=== PATIENT | female | born 1925 | race Caucasian/White ===

== ENCOUNTER 2016-07-05 12:28 | Inpatient (IN) | payer OTHER ==
[~2016-07-05] VITALS: Ht 154.9 cm; Wt 42.2 kg
[~2016-07-05 12:28] MED LIST: BACITRACIN 50,000 UNITS INJ IRRIG ONE
[2016-07-05] MEDS ORDERED: FENTANYL 100 MCG/2 ML AMP IV ONE (13:34)
[2016-07-05] MEDS ORDERED: KETAMINE INJ 50 MG/ML VIAL IV ONE (13:34)
[2016-07-05] MEDS ORDERED: MIDAZOLAM 2 MG/2 ML INJ IV ONE (13:34)
[2016-07-05 15:15] VITALS: BP_SYST 156; BP_SYST 160; RESP 18; TEMP 98.7
[2016-07-05 16:41] VITALS: Ht 154.9 cm; Wt 42.2 kg
[2016-07-05] MEDS ORDERED: SALINE FLUSH 10 ML FLUSH PRN (17:20)
[2016-07-05] MEDS ORDERED: BISACODYL 10 MG SUPP RECTAL PRN (17:20)
[2016-07-05] MEDS ORDERED: ALU/MAG/SIM 30 ML UDC PO PRN (17:20)
[2016-07-05] MEDS ORDERED: MAG HYDROX 30 ML UDC PO PRN (17:20)
[2016-07-05] MEDS ORDERED: BISACODYL EC 5 MG TAB PO PRN (17:20)
[2016-07-05] MEDS ORDERED: ONDANSETRON 4 MG VIAL IV PRN (17:20)
[2016-07-05 19:06] VITALS: BP_SYST 147; RESP 16; TEMP 98.7
[2016-07-05] MEDS: KCL CR 10 MEQ TAB PO SCH (19:41)
[2016-07-05] MEDS: CHOLECALCIFEROL 1,000 UNITS TAB PO SCH (19:42)
[2016-07-05] MEDS: PAROXETINE HCL 20 MG TAB PO SCH (19:42)
[2016-07-05] MEDS: MONTELUKAST 10 MG TAB PO SCH (19:42)
[2016-07-05] MEDS: TOLTERODINE LA 2 MG CAP PO SCH (19:43)
[2016-07-05] MEDS: SALINE FLUSH 10 ML FLUSH SCH (19:55)
[2016-07-05 19:58] VITALS: RESP 20
[2016-07-05] MEDS: CARBIDOPA PO SCH (21:57)
[2016-07-05] MEDS: LEVODOPA PO SCH (21:57)
[2016-07-05] MEDS: DOCUSATE SOD 100 MG CAP PO SCH (21:57)
[2016-07-05] MEDS: DILAUDID 1 MG/ML AMP IV PRN (22:15)
[2016-07-05 22:33] VITALS: BP_SYST 151; RESP 16; TEMP 99.5
[2016-07-06] VITALS (15 sets, daily range): BP systolic 92–147; RESP 15–28; TEMP 97.5–101
[2016-07-06] MEDS: SODIUM CHLORIDE 0.9% FLUSH BAG 500 ML IV SCH (05:57)
[2016-07-06] MEDS: DILAUDID 1 MG/ML AMP IV PRN (06:54)
[2016-07-06] MEDS ORDERED: CEFAZOLIN 2,000 MG in SODIUM CHLORIDE 0.9% 100 ML IV ONE (07:05)
[2016-07-06] MEDS ORDERED: NEB-XOPENEX 0.63 MG/3 ML INH ONE (07:45)
[2016-07-06] MEDS ORDERED: LACT RINGERS 1,000 ML IV SCH (07:45)
[2016-07-06] MEDS ORDERED: GLYCOPYRROLATE 0.2 MG/ML VIAL IV ONE (07:45)
[2016-07-06] MEDS ORDERED: LIDOCAINE 1% BUFFERED 1 ML SYR INTRADERM PRN (07:45)
[2016-07-06] MEDS ORDERED: MIDAZOLAM 2 MG/2 ML INJ IV ONE (07:45)
[2016-07-06] MEDS: DUONEB INH SCH ×3 (08:10→18:57)
[2016-07-06] MEDS: SALINE FLUSH 10 ML FLUSH SCH ×3 (08:47→21:00)
[2016-07-06] MEDS ORDERED: ENOXAPARIN 30 MG/0.3 ML SYR SUBQ SCH (09:00)
[2016-07-06] MEDS: LEVODOPA PO SCH ×3 (09:00→21:00)
[2016-07-06] MEDS: CARBIDOPA PO SCH ×3 (09:00→21:00)
[2016-07-06] MEDS ORDERED: MORPHINE 2 MG/ML SYR IV PRN (12:15)
[2016-07-06] MEDS ORDERED: DILAUDID 1 MG/ML AMP IV PRN (12:15)
[2016-07-06] MEDS ORDERED: ONDANSETRON 4 MG VIAL IV PRN ×2 (12:15→13:20)
[2016-07-06] MEDS ORDERED: MORPHINE 4 MG/ML SYR IV PRN ×2 (12:15→13:20)
[2016-07-06] MEDS ORDERED: OXYCODONE 5 MG TAB PO PRN (12:15)
[2016-07-06] MEDS ORDERED: D5-1/2-NS W/KCL 20MEQ/L 1,000 ML IV SCH (13:20)
[2016-07-06] MEDS ORDERED: MAG HYDROX 30 ML UDC PO PRN (13:20)
[2016-07-06] MEDS ORDERED: SALINE FLUSH 10 ML FLUSH PRN (13:20)
[2016-07-06] MEDS ORDERED: ONDANSETRON 4 MG TAB PO PRN (13:20)
[2016-07-06] MEDS: TOLTERODINE LA 2 MG CAP PO SCH (15:06)
[2016-07-06] MEDS: KCL CR 10 MEQ TAB PO SCH (15:06)
[2016-07-06] MEDS: PAROXETINE HCL 20 MG TAB PO SCH (15:06)
[2016-07-06] MEDS: MONTELUKAST 10 MG TAB PO SCH (15:07)
[2016-07-06] MEDS: CHOLECALCIFEROL 1,000 UNITS TAB PO SCH (15:07)
[2016-07-06] MEDS: CEFAZOLIN 2,000 MG in SODIUM CHLORIDE 0.9% 100 ML IV SCH ×2 (18:18→23:00)
[2016-07-06] MEDS: DOCUSATE SOD 100 MG CAP PO SCH ×2 (21:00)
[2016-07-06] MEDS: SENNA 8.6 MG TAB PO SCH (21:00)
[2016-07-06] MEDS: MORPHINE 2 MG/ML SYR IV PRN (22:49)
[2016-07-07 04:27] VITALS: BP_SYST 130; RESP 18; TEMP 99.2
[2016-07-07] MEDS: DUONEB INH SCH ×3 (05:04→17:09)
[2016-07-07] MEDS: SODIUM CHLORIDE 0.9% FLUSH BAG 500 ML IV SCH ×2 (05:09→05:10)
[2016-07-07] MEDS: CEFAZOLIN 2,000 MG in SODIUM CHLORIDE 0.9% 100 ML IV SCH ×2 (05:12→11:49)
[2016-07-07] MEDS: ENOXAPARIN 30 MG/0.3 ML SYR SUBQ SCH (05:13)
[2016-07-07 07:12] VITALS: BP_SYST 115; RESP 18; TEMP 98
[2016-07-07] MEDS: SALINE FLUSH 10 ML FLUSH SCH ×4 (08:00→20:02)
[2016-07-07] MEDS: POLYETHYLENE GLYCOL 17 GM PACKET PO SCH (08:29)
[2016-07-07] MEDS: CARBIDOPA PO SCH ×3 (08:30→20:03)
[2016-07-07] MEDS: SENNA 8.6 MG TAB PO SCH ×2 (08:30→20:03)
[2016-07-07] MEDS: PAROXETINE HCL 20 MG TAB PO SCH (08:30)
[2016-07-07] MEDS: TOLTERODINE LA 2 MG CAP PO SCH (08:30)
[2016-07-07] MEDS: MONTELUKAST 10 MG TAB PO SCH (08:30)
[2016-07-07] MEDS: LEVODOPA PO SCH ×3 (08:30→20:03)
[2016-07-07] MEDS: CHOLECALCIFEROL 1,000 UNITS TAB PO SCH (08:30)
[2016-07-07] MEDS: MAG HYDROX 30 ML UDC PO SCH (08:31)
[2016-07-07] MEDS: DOCUSATE SOD 100 MG CAP PO SCH ×3 (08:31→20:55)
[2016-07-07] MEDS ORDERED: MISSING DOSE XX ONE (09:15)
[2016-07-07] MEDS: KCL CR 10 MEQ TAB PO SCH (10:10)
[2016-07-07] MEDS: MORPHINE 2 MG/ML SYR IV PRN ×2 (11:02→16:51)
[2016-07-07 11:21] VITALS: BP_SYST 106; RESP 16; TEMP 98.6
[2016-07-07 15:33] VITALS: BP_SYST 113; RESP 18; TEMP 98.1
[2016-07-07] MEDS ORDERED: FLEET ENEMA 132 ML BTL RECTAL PRN (15:50)
[2016-07-07 18:49] VITALS: BP_SYST 100; RESP 16; TEMP 98.6
[2016-07-07 23:48] VITALS: BP_SYST 100; RESP 12; TEMP 97.6
[2016-07-08 04:35] VITALS: BP_SYST 113; RESP 12; TEMP 97.9
[2016-07-08] MEDS: DUONEB INH SCH ×3 (05:25→17:09)
[2016-07-08] MEDS: SODIUM CHLORIDE 0.9% FLUSH BAG 500 ML IV SCH ×2 (05:38)
[2016-07-08] MEDS: ENOXAPARIN 30 MG/0.3 ML SYR SUBQ SCH (06:57)
[2016-07-08 07:23] VITALS: BP_SYST 116; RESP 14; TEMP 98.1
[2016-07-08] MEDS: MAG HYDROX 30 ML UDC PO SCH (08:12)
[2016-07-08] MEDS: LEVODOPA PO SCH (08:13)
[2016-07-08] MEDS: CARBIDOPA PO SCH (08:13)
[2016-07-08] MEDS: SENNA 8.6 MG TAB PO SCH ×3 (08:13→20:58)
[2016-07-08] MEDS: DOCUSATE SOD 100 MG CAP PO SCH ×4 (08:13→20:57)
[2016-07-08] MEDS: KCL CR 10 MEQ TAB PO SCH (08:14)
[2016-07-08] MEDS: POLYETHYLENE GLYCOL 17 GM PACKET PO SCH (08:14)
[2016-07-08] MEDS: SALINE FLUSH 10 ML FLUSH SCH ×4 (08:46→20:28)
[2016-07-08] MEDS: TOLTERODINE LA 2 MG CAP PO SCH (10:01)
[2016-07-08] MEDS: MONTELUKAST 10 MG TAB PO SCH (10:01)
[2016-07-08] MEDS: PAROXETINE HCL 20 MG TAB PO SCH (10:02)
[2016-07-08] MEDS: CHOLECALCIFEROL 1,000 UNITS TAB PO SCH (10:02)
[2016-07-08] MEDS: FERROUS GLUC 324 MG TAB PO SCH ×3 (10:35→20:57)
[2016-07-08 11:58] VITALS: BP_SYST 111; RESP 16; TEMP 98
[2016-07-08] MEDS: MORPHINE 2 MG/ML SYR IV PRN ×2 (14:26→21:34)
[2016-07-08] MEDS: ACETAMINOPHEN 325 MG TAB PO PRN (15:03)
[2016-07-08 16:11] VITALS: BP_SYST 104; RESP 18; TEMP 98
[2016-07-08 19:35] VITALS: BP_SYST 94; RESP 18; TEMP 98.1
[2016-07-09] MEDS: MORPHINE 2 MG/ML SYR IV PRN (02:21)
[2016-07-09 03:07] VITALS: BP_SYST 127; RESP 16; TEMP 98
[2016-07-09] MEDS: SODIUM CHLORIDE 0.9% FLUSH BAG 500 ML IV SCH ×2 (06:00)
[2016-07-09] MEDS: ENOXAPARIN 30 MG/0.3 ML SYR SUBQ SCH (06:54)
[2016-07-09] MEDS: DUONEB INH SCH ×3 (07:28→18:16)
[2016-07-09] MEDS: SALINE FLUSH 10 ML FLUSH SCH ×4 (08:00→20:59)
[2016-07-09 08:16] VITALS: BP_SYST 95; RESP 16; TEMP 98.3
[2016-07-09] MEDS: MONTELUKAST 10 MG TAB PO SCH (09:00)
[2016-07-09] MEDS: DOCUSATE SOD 100 MG CAP PO SCH ×3 (09:00→21:13)
[2016-07-09] MEDS: CHOLECALCIFEROL 1,000 UNITS TAB PO SCH (09:00)
[2016-07-09] MEDS: MAG HYDROX 30 ML UDC PO SCH (09:00)
[2016-07-09] MEDS: SENNA 8.6 MG TAB PO SCH ×2 (09:00→21:09)
[2016-07-09] MEDS: KCL CR 10 MEQ TAB PO SCH (09:19)
[2016-07-09] MEDS: TOLTERODINE LA 2 MG CAP PO SCH (09:19)
[2016-07-09] MEDS: FERROUS GLUC 324 MG TAB PO SCH ×2 (09:19→21:09)
[2016-07-09] MEDS: PAROXETINE HCL 20 MG TAB PO SCH (09:20)
[2016-07-09] MEDS: POLYETHYLENE GLYCOL 17 GM PACKET PO SCH (10:08)
[2016-07-09 12:05] VITALS: BP_SYST 128; RESP 16; TEMP 98
[2016-07-09] MEDS: ACETAMINOPHEN 325 MG TAB PO PRN (12:26)
[2016-07-09 15:40] VITALS: BP_SYST 115; RESP 16; TEMP 98.1
[2016-07-09 19:36] VITALS: BP_SYST 127; RESP 16; TEMP 98
[2016-07-09 22:44] VITALS: BP_SYST 121; RESP 18; TEMP 98.6
[2016-07-10] MEDS: SODIUM CHLORIDE 0.9% FLUSH BAG 500 ML IV SCH (05:49)
[2016-07-10] MEDS: ENOXAPARIN 30 MG/0.3 ML SYR SUBQ SCH (05:49)
[2016-07-10] MEDS: DUONEB INH SCH ×3 (07:31→17:21)
[2016-07-10] MEDS: POLYETHYLENE GLYCOL 17 GM PACKET PO SCH (08:07)
[2016-07-10] MEDS: DOCUSATE SOD 100 MG CAP PO SCH ×3 (08:07→20:52)
[2016-07-10] MEDS: MAG HYDROX 30 ML UDC PO SCH (08:07)
[2016-07-10] MEDS: TOLTERODINE LA 2 MG CAP PO SCH (08:07)
[2016-07-10] MEDS: SALINE FLUSH 10 ML FLUSH SCH ×2 (08:07→20:51)
[2016-07-10] MEDS: FERROUS GLUC 324 MG TAB PO SCH ×2 (08:08→20:52)
[2016-07-10] MEDS: PAROXETINE HCL 20 MG TAB PO SCH (08:08)
[2016-07-10] MEDS: KCL CR 10 MEQ TAB PO SCH (08:08)
[2016-07-10] MEDS: SENNA 8.6 MG TAB PO SCH ×2 (08:08→20:53)
[2016-07-10] MEDS: MONTELUKAST 10 MG TAB PO SCH (08:08)
[2016-07-10] MEDS: CHOLECALCIFEROL 1,000 UNITS TAB PO SCH (08:08)
[2016-07-10] MEDS: ACETAMINOPHEN 325 MG TAB PO PRN (11:18)
[2016-07-10] MEDS: ROFLUMILAST 500 MCG TAB PO SCH (11:18)
[2016-07-10] MEDS: NEB-BUDESONIDE 0.5 MG INH SCH ×2 (11:27→17:22)
[2016-07-10] MEDS: NEB-BROVANA 15 MCG/2 ML INH SCH ×2 (11:27→17:22)
[2016-07-10 11:56] VITALS: BP_SYST 163; RESP 16; TEMP 98.7
[2016-07-10 15:31] VITALS: BP_SYST 127; RESP 16; TEMP 98.2
[2016-07-10 19:54] VITALS: BP_SYST 116; TEMP 98.6
[2016-07-10 19:55] VITALS: RESP 20
[2016-07-10] MEDS: TRAZODONE 50 MG TAB PO PRN (22:01)
[2016-07-10 22:42] VITALS: BP_SYST 121; RESP 18; TEMP 99.5
[2016-07-11] VITALS (8 sets, daily range): BP systolic 125–163; RESP 18–20; TEMP 97.2–99
[2016-07-11] MEDS: SODIUM CHLORIDE 0.9% FLUSH BAG 500 ML IV SCH (04:14)
[2016-07-11] MEDS: ENOXAPARIN 30 MG/0.3 ML SYR SUBQ SCH (06:45)
[2016-07-11] MEDS: NEB-BUDESONIDE 0.5 MG INH SCH ×2 (07:36→19:55)
[2016-07-11] MEDS: DUONEB INH SCH ×3 (07:36→19:55)
[2016-07-11] MEDS: CHOLECALCIFEROL 1,000 UNITS TAB PO SCH (08:12)
[2016-07-11] MEDS: ROFLUMILAST 500 MCG TAB PO SCH (08:12)
[2016-07-11] MEDS: MONTELUKAST 10 MG TAB PO SCH (08:12)
[2016-07-11] MEDS: PAROXETINE HCL 20 MG TAB PO SCH (08:12)
[2016-07-11] MEDS: TOLTERODINE LA 2 MG CAP PO SCH (08:12)
[2016-07-11] MEDS: FERROUS GLUC 324 MG TAB PO SCH ×2 (08:12→21:13)
[2016-07-11] MEDS: SENNA 8.6 MG TAB PO SCH ×2 (08:13→21:13)
[2016-07-11] MEDS: KCL CR 10 MEQ TAB PO SCH (08:13)
[2016-07-11] MEDS: POLYETHYLENE GLYCOL 17 GM PACKET PO SCH (08:13)
[2016-07-11] MEDS: DOCUSATE SOD 100 MG CAP PO SCH ×3 (08:13→21:13)
[2016-07-11] MEDS: MAG HYDROX 30 ML UDC PO SCH (08:14)
[2016-07-11] MEDS: SALINE FLUSH 10 ML FLUSH SCH ×2 (08:24→21:12)
[2016-07-11] MEDS: NEB-BROVANA 15 MCG/2 ML INH SCH ×2 (08:38→19:55)
[2016-07-11] MEDS ORDERED: MISSING DOSE XX ONE ×2 (14:45→23:10)
[2016-07-11] MEDS: TRAZODONE 50 MG TAB PO PRN (23:30)
[2016-07-12 03:43] VITALS: BP_SYST 117; RESP 18; TEMP 97.3
[2016-07-12] MEDS: SODIUM CHLORIDE 0.9% FLUSH BAG 500 ML IV SCH (06:00)
[2016-07-12] MEDS: ENOXAPARIN 30 MG/0.3 ML SYR SUBQ SCH (06:41)
[2016-07-12] MEDS: NEB-BROVANA 15 MCG/2 ML INH SCH (06:45)
[2016-07-12] MEDS: NEB-BUDESONIDE 0.5 MG INH SCH (06:45)
[2016-07-12] MEDS: DUONEB INH SCH ×2 (06:46→11:55)
[2016-07-12 07:00] VITALS: BP_SYST 131; RESP 16; TEMP 97.7
[2016-07-12] MEDS: SALINE FLUSH 10 ML FLUSH SCH (07:56)
[2016-07-12] MEDS: POLYETHYLENE GLYCOL 17 GM PACKET PO SCH (07:56)
[2016-07-12] MEDS: CHOLECALCIFEROL 1,000 UNITS TAB PO SCH (07:58)
[2016-07-12] MEDS: MONTELUKAST 10 MG TAB PO SCH (07:58)
[2016-07-12] MEDS: SENNA 8.6 MG TAB PO SCH (07:58)
[2016-07-12] MEDS: KCL CR 10 MEQ TAB PO SCH (07:58)
[2016-07-12] MEDS: PAROXETINE HCL 20 MG TAB PO SCH (07:59)
[2016-07-12] MEDS: ROFLUMILAST 500 MCG TAB PO SCH (07:59)
[2016-07-12] MEDS: DOCUSATE SOD 100 MG CAP PO SCH (07:59)
[2016-07-12] MEDS: TOLTERODINE LA 2 MG CAP PO SCH (07:59)
[2016-07-12] MEDS: FERROUS GLUC 324 MG TAB PO SCH (08:00)
[2016-07-12] MEDS: MAG HYDROX 30 ML UDC PO SCH (09:00)
[2016-07-12 11:00] VITALS: BP_SYST 120; RESP 18; TEMP 98.3
[2016-07-12 15:07] VITALS: BP_SYST 110; RESP 18; TEMP 98
== END 2016-07-12 16:18 | disposition home health service (06) | DRG 956 ==
LOC: ENRESERVTM → ENRESERVDT → ENPENDDIS 15:20 → 2NO 15:20 → DELPENDDIS 15:20
PROVIDERS: ADMIT Internal Medicine; ATTEND Internal Medicine
PROC: 0QS704Z Reposition Left Upper Femur with Internal Fixation Device, Open Approach (ICD-10-PCS; principal; 2016-07-06 12:09)
CPT/HCPCS: 73700; 76000; 80053; 84439; 84443; 85014; 85018; 85025; 85610; 85730; 93005; 94640; 94762; 94799; 99232; 99239